=== PATIENT | female | born 1960 | race American Indian/Alaskan Native ===

== ENCOUNTER 2016-04-26 11:37 | Emergency (ER) | payer MEDICARE ==
[2016-04-26] MEDS ORDERED: MOTRIN PO ONE (16:37)
[2016-04-26 17:10] LABS: Basophils % (Auto) 1.1 % (0.0-1.8); Eosinophils % (Auto) 1.3 % (0.0-4.3); Hemoglobin 13.1 gm/dl (10.1-14.3); Mean Corpuscular HGB Conc 33 % (30-34); Mean Corpuscular Volume 79 fl (79-97); Platelet Count 157 K/mm3 (140-440); Red Blood Count 5.09 M/mm3 (3.65-5.03); Red Cell Distribution Width 16.4 % (13.2-15.2); White Blood Count 5.4 K/mm3 (4.5-11.0)
[2016-04-26 17:15] LABS: Mean Corpuscular Hemoglobin 26 pg (28-32)
[2016-04-26] MEDS ORDERED: DUONEB 0.5 MG-3 MG/3 ML SOLN IH ONE ×2 (17:17→18:15)
[2016-04-26 17:30] LABS: BUN/Creatinine Ratio 18.33; Blood Urea Nitrogen 11 mg/dL (7-17); Calcium 10.5 mg/dL (8.4-10.2); Carbon Dioxide 30 mmol/L (22-30); Chloride 100.3 mmol/L (98-107); Glucose 87 mg/dL (65-100); Sodium 141 mmol/L (137-145)
[2016-04-26 17:32] VITALS: BP 158/95
[2016-04-26 17:32] LABS: Anion Gap 15 mmol/L
--- NOTE | 2016-04-26 17:56 | XRay Report ---
FINAL REPORT EXAM: XR CHEST ROUTINE 2V HISTORY: worsening cough TECHNIQUE: PA and lateral views of the chest PRIORS: None. FINDINGS: Lines, tubes, and devices: N/A Lungs and pleura: Trachea is normal in position. Lungs are clear of infiltrate, pleural effusion, vascular congestion, or pneumothorax. Cardiomediastinal silhouette: Cardiac and mediastinal silhouettes are unremarkable. Other: Bony structures demonstrate degenerative disc changes throughout the thoracic spine with osteophytes anteriorly. IMPRESSION: No acute cardiopulmonary process seen.
--- NOTE | 2016-04-26 17:57 | Emergency Department Report ---
- General Time Seen by Provider: 04/26/16 16:31 - History of Present Illness Initial Comments: 55-year-old female past medical history diabetes hypertension asthma presents with complaint of 3 days of cough yellowish sputum, minor sore throat. Denies any chest pain no palpitations states she has been feeling somewhat wheezy ran out of her albuterol inhaler at home. Patient awake alert and oriented 3 coughing, no audible stridor or wheezing no visible dyspnea. States that she has had a yellowish sputum and her cough. States she has had multiple sick contacts at home. States she had been taking Benadryl to try to help her cough at home with minimal to no relief MD Complaint: cough Onset/Timin -: days(s) Severity: moderate Severity scale (0 -10): 5 Consistency: constant Context: sick contacts Associated Symptoms: cough - Related Data Previous Rx's Medication Instructions Recorded Last Taken Type Ibuprofen [Motrin] 800 mg PO Q8HR PRN #30 tablet 08/16/15 Unknown Rx Azithromycin [Zithromax Z-ARIA] 250 mg PO QDAY PRN #6 tablet 04/26/16 Unknown Rx Naproxen [Naproxen TAB] 250 mg PO BID PRN #20 tablet 04/26/16 Unknown Rx guaiFENesin/DEXTROMETHORPHAN 10 ml PO Q6H PRN #1 liquid 04/26/16 Unknown Rx [Diabetic Tussin Dm Max-Str Liq] Allergies Allergy/AdvReac Type Severity Reaction Status Date / Time No Known Allergies Allergy Unverified 08/16/15 03:39 ED Review of Systems ROS: Stated complaint: Other details as noted in HPI Constitutional: denies: chills, fever Eyes: denies: eye pain, eye discharge, vision change ENT: denies: ear pain, throat pain Respiratory: cough, wheezing. denies: shortness of breath Cardiovascular: denies: chest pain, palpitations Endocrine: no symptoms reported Gastrointestinal: denies: abdominal pain, nausea, diarrhea Genitourinary: denies: urgency, dysuria, discharge Musculoskeletal: denies: back pain, joint swelling, arthralgia Skin: denies: rash, lesions Neurological: denies: headache, weakness, paresthesias Psychiatric: denies: anxiety, depression Hematological/Lymphatic: denies: easy bleeding, easy bruising ED Past Medical Hx - Past Medical History Hx Hypertension: Yes Hx Diabetes: Yes - Surgical History Additional Surgical History: Hysterectomy - Social History Smoking Status: Never Smoker Substance Use Type: None - Medications Home Medications: Home Medications Medication Instructions Recorded Confirmed Last Taken Type Ibuprofen [Motrin] 800 mg PO Q8HR PRN #30 tablet 08/16/15 Unknown Rx Azithromycin [Zithromax Z-ARIA] 250 mg PO QDAY PRN #6 tablet 04/26/16 Unknown Rx Naproxen [Naproxen TAB] 250 mg PO BID PRN #20 tablet 04/26/16 Unknown Rx guaiFENesin/DEXTROMETHORPHAN 10 ml PO Q6H PRN #1 liquid 04/26/16 Unknown Rx [Diabetic Tussin Dm Max-Str Liq] ED Physical Exam - General General appearance: alert, in no apparent distress - Head Head exam: Present: atraumatic, normocephalic - Eye Eye exam: Present: normal appearance, PERRL, EOMI - ENT ENT exam: Present: mucous membranes moist - Neck Neck exam: Present: normal inspection - Respiratory Respiratory exam: Present: normal lung sounds bilaterally, wheezes (minor wheezing right lower lung field). Absent: respiratory distress - Cardiovascular Cardiovascular Exam: Present: regular rate, normal rhythm. Absent: systolic murmur, diastolic murmur, rubs, gallop - GI/Abdominal GI/Abdominal exam: Present: soft, normal bowel sounds - Extremities Exam Extremities exam: Present: normal inspection - Back Exam Back exam: Present: normal inspection - Neurological Exam Neurological exam: Present: alert, oriented X3 - Psychiatric Psychiatric exam: Present: normal affect, normal mood - Skin Skin exam: Present: warm, dry, intact, normal color. Absent: rash ED Course Vital Signs 04/26/16 04/26/16 17:31 17:47 Temperature 98.8 F Pulse Rate 81 Pulse Rate [ 85 Bilateral Upper Lobe] Respiratory 18 Rate Respiratory 18 Rate [Bilateral Upper Lobe] Blood Pressure 158/95 [Left] O2 Sat by Pulse 100 Oximetry ED Medical Decision Making - Lab Data Result diagrams: 04/26/16 16:50 04/26/16 16:50 - Medical Decision Making A/P: Acute bronchitis 1-patient is influenza negative 2-chest x-ray shows no pneumonia 3-albuterol when necessary, Motrin when necessary, Guainfenessin/DM PRN as patient is diabetic as productive cough will empirically antibios for bronchitis with Z-Aria 4-follow-up with primary medical doctor this week 5- I advised patient to return to the ED if her wheezing worsens if she develops severe fever or chills, if cough worsens or she experiences no relief with her current regimen Critical care attestation.: If time is entered above; I have spent that time in minutes in the direct care of this critically ill patient, excluding procedure time. ED Disposition Clinical Impression: Acute bronchitis Qualifiers: Bronchitis organism: unspecified organism Qualified Code(s): J20.9 - Acute bronchitis, unspecified Reactive airway disease Qualifiers: Asthma severity: mild intermittent Asthma complication type: uncomplicated Qualified Code(s): J45.20 - Mild intermittent asthma, uncomplicated Disposition: DISCHARGED TO HOME OR SELFCARE Is pt being admited?: No Condition: Stable Instructions: Acute Bronchitis (ED), Reactive Airways Disease (ED), Cold Symptoms (ED) Additional Instructions: pt to f/u with her PMD in 3-5 days, pt states she has one, if not referral provided in DC packet. Prescriptions: Azithromycin [Zithromax Z-ARIA] 250 mg PO QDAY PRN #6 tablet PRN Reason: Cough guaiFENesin/DEXTROMETHORPHAN [Diabetic Tussin Dm Max-Str Liq] 10 ml PO Q6H PRN # 1 liquid PRN Reason: Cough Naproxen [Naproxen TAB] 250 mg PO BID PRN #20 tablet PRN Reason: Cough Referrals: VU MEJIAS DO [Primary Care Provider] - 3-5 Days [facility] [Outside] - 3-5 Days KEESHA ADAN MD [Referring] - 3-5 Days Time of Disposition: 18:04
== END 2016-04-26 19:00 | disposition home or self-care (01) ==
LOC: ED 11:37
DX: J20.9 Acute bronchitis, unspecified (principal); J45.20 Mild intermittent asthma, uncomplicated; I10 Essential (primary) hypertension; E11.9 Type 2 diabetes mellitus without complications
CPT/HCPCS: 36415; 71020; 80048; 85025; 87400; 94640

== ENCOUNTER 2016-11-28 05:56 | Emergency (ER) | payer MEDICARE ==
[2016-11-28] MEDS ORDERED: TORADOL IM ONE (08:03)
[2016-11-28] MEDS ORDERED: CATAPRES PO ONE (08:06)
--- NOTE | 2016-11-28 08:10 | Emergency Department Report ---
ED ENT HPI - General Chief complaint: Earache Stated complaint: L EAR PAIN/SWELLIN/R EAR ITCHING Time Seen by Provider: 11/28/16 07:57 Source: patient Mode of arrival: Ambulatory Limitations: No Limitations - History of Present Illness Initial comments: This is a 56-year-old female nontoxic, well nourished in appearance, no acute signs of distress presents to the ED complaining of left ear pain 2 days. Patient describes pain as aching level of 10 out of 10. Patient denies any hearing loss, headache, dizziness, blurry vision, ear discharge, tragus pain, mastoid pain, fever, chills, nausea, vomiting, chest pain, shortness of breath, numbness or tingling. Patient denies any allergies. Denies any trauma to the region. They stated she has history of high blood pressure and takes lisinopril 40 mg but take her dose today. Past mental history includes diabetes and hypertension. MD complaint: ear pain -: Gradual, days(s) (2) Location: L ear Severity: moderate Severity scale (0 -10): 10 Quality: aching Consistency: constant Improves with: none Worsens with: none Associated Symptoms: denies: fever, cough, gum swelling, toothache, pain with swallowing, sore throat, tinnitus, hearing loss, discharge from ear, rhinorrhea - Related Data Previous Rx's Medication Instructions Recorded Last Taken Type Ibuprofen [Motrin] 800 mg PO Q8HR PRN #30 tablet 08/16/15 Unknown Rx Azithromycin [Zithromax Z-ARIA] 250 mg PO QDAY PRN #6 tablet 04/26/16 Unknown Rx Naproxen [Naproxen TAB] 250 mg PO BID PRN #20 tablet 04/26/16 Unknown Rx guaiFENesin/DEXTROMETHORPHAN 10 ml PO Q6H PRN #1 liquid 04/26/16 Unknown Rx [Diabetic Tussin Dm Max-Str Liq] Amoxicillin/K Clav Tab [Augmentin 1 tab PO Q12HR #20 tab 11/28/16 Unknown Rx 875 mg] traMADol [Ultram] 50 mg PO Q6HR PRN #15 tablet 11/28/16 Unknown Rx Allergies Allergy/AdvReac Type Severity Reaction Status Date / Time No Known Allergies Allergy Unverified 08/16/15 03:39 ED Dental HPI - General Chief complaint: Earache Stated complaint: L EAR PAIN/SWELLIN/R EAR ITCHING Time Seen by Provider: 11/28/16 07:57 Source: patient Mode of arrival: Ambulatory Limitations: No Limitations - Related Data Previous Rx's Medication Instructions Recorded Last Taken Type Ibuprofen [Motrin] 800 mg PO Q8HR PRN #30 tablet 08/16/15 Unknown Rx Azithromycin [Zithromax Z-ARIA] 250 mg PO QDAY PRN #6 tablet 04/26/16 Unknown Rx Naproxen [Naproxen TAB] 250 mg PO BID PRN #20 tablet 04/26/16 Unknown Rx guaiFENesin/DEXTROMETHORPHAN 10 ml PO Q6H PRN #1 liquid 04/26/16 Unknown Rx [Diabetic Tussin Dm Max-Str Liq] Amoxicillin/K Clav Tab [Augmentin 1 tab PO Q12HR #20 tab 11/28/16 Unknown Rx 875 mg] traMADol [Ultram] 50 mg PO Q6HR PRN #15 tablet 11/28/16 Unknown Rx Allergies Allergy/AdvReac Type Severity Reaction Status Date / Time No Known Allergies Allergy Unverified 08/16/15 03:39 ED Review of Systems ROS: Stated complaint: L EAR PAIN/SWELLIN/R EAR ITCHING Other details as noted in HPI Constitutional: denies: chills, fever Eyes: denies: eye pain, eye discharge, vision change ENT: ear pain. denies: throat pain Respiratory: denies: cough, shortness of breath, wheezing Cardiovascular: denies: chest pain, palpitations Endocrine: no symptoms reported Gastrointestinal: denies: abdominal pain, nausea, diarrhea Genitourinary: denies: urgency, dysuria, discharge Musculoskeletal: denies: back pain, joint swelling, arthralgia Skin: denies: rash, lesions Neurological: denies: headache, weakness, paresthesias Psychiatric: denies: anxiety, depression Hematological/Lymphatic: denies: easy bleeding, easy bruising ED Past Medical Hx - Past Medical History Previous Medical History?: Yes Hx Hypertension: Yes Hx Diabetes: Yes - Surgical History Past Surgical History?: Yes Additional Surgical History: Hysterectomy. c section - Social History Smoking Status: Never Smoker Substance Use Type: None - Medications Home Medications: Home Medications Medication Instructions Recorded Confirmed Last Taken Type Ibuprofen [Motrin] 800 mg PO Q8HR PRN #30 tablet 08/16/15 Unknown Rx Azithromycin [Zithromax Z-ARIA] 250 mg PO QDAY PRN #6 tablet 04/26/16 Unknown Rx Naproxen [Naproxen TAB] 250 mg PO BID PRN #20 tablet 04/26/16 Unknown Rx guaiFENesin/DEXTROMETHORPHAN 10 ml PO Q6H PRN #1 liquid 04/26/16 Unknown Rx [Diabetic Tussin Dm Max-Str Liq] Amoxicillin/K Clav Tab [Augmentin 1 tab PO Q12HR #20 tab 11/28/16 Unknown Rx 875 mg] traMADol [Ultram] 50 mg PO Q6HR PRN #15 tablet 11/28/16 Unknown Rx ED Physical Exam - General Limitations: No Limitations General appearance: alert, in no apparent distress - Head Head exam: Present: atraumatic, normocephalic, normal inspection - Eye Eye exam: Present: normal appearance, PERRL, EOMI. Absent: scleral icterus, conjunctival injection, nystagmus, periorbital swelling, periorbital tenderness Pupils: Present: normal accommodation - ENT ENT exam: Present: normal exam, normal orophraynx, mucous membranes moist, normal external ear exam - Expanded ENT Exam Expanded Ear exam: Present: normal external inspection TM/Canal exam: Erythema: Left TM, Bulging: Left TM Mouth exam: Present: normal external inspection, tongue normal. Absent: drooling, trismus, muffled voice, tongue elevation, laceration Teeth exam: Present: normal inspection Throat exam: Positive: normal inspection. Negative: tonsillar erythema, tonsillomegaly, tonsillar exudate, R peritonsillar mass, L peritonsillar mass - Neck Neck exam: Present: normal inspection, full ROM. Absent: tenderness, meningismus, lymphadenopathy, thyromegaly - Respiratory Respiratory exam: Present: normal lung sounds bilaterally. Absent: respiratory distress, wheezes, rales, rhonchi, stridor, chest wall tenderness, accessory muscle use, decreased breath sounds, prolonged expiratory - Cardiovascular Cardiovascular Exam: Present: regular rate, normal rhythm, normal heart sounds. Absent: bradycardia, tachycardia, irregular rhythm, systolic murmur, diastolic murmur, rubs, gallop - GI/Abdominal GI/Abdominal exam: Present: soft, normal bowel sounds. Absent: distended, tenderness, guarding, rebound, rigid, diminished bowel sounds - Rectal Rectal exam: Present: deferred - Extremities Exam Extremities exam: Present: normal inspection, full ROM, normal capillary refill. Absent: tenderness, pedal edema, joint swelling, calf tenderness - Back Exam Back exam: Present: normal inspection, full ROM. Absent: tenderness, CVA tenderness (R), CVA tenderness (L), muscle spasm, paraspinal tenderness, vertebral tenderness, rash noted - Neurological Exam Neurological exam: Present: alert, oriented X3, CN II-XII intact, normal gait, reflexes normal - Psychiatric Psychiatric exam: Present: normal affect, normal mood - Skin Skin exam: Present: warm, dry, intact, normal color. Absent: rash ED Course Vital Signs 11/28/16 06:03 Temperature 98.6 F Pulse Rate 87 Blood Pressure 202/117 - Reevaluation(s) Reevaluation #1: 11/28/16 08:11 Patient is speaking in full sentences with no signs of distress. Reevaluation #2: 11/28/16 08:11 Patient was notified of high blood pressure. Pt received Catapress 0.2mg and will reevaluate b/p. Reevaluation #3: 11/28/16 08:12 patient was notified of f/u with her PCP in 24 hours for her hypertension. Critical care attestation.: If time is entered above; I have spent that time in minutes in the direct care of this critically ill patient, excluding procedure time. ED Disposition Clinical Impression: Hypertension Qualifiers: Hypertension type: unspecified Qualified Code(s): I10 - Essential (primary) hypertension Otitis media Qualifiers: Otitis media type: unspecified Chronicity: unspecified Laterality: right Qualified Code(s): H66.91 - Otitis media, unspecified, right ear Disposition: DC-01 TO HOME OR SELFCARE Is pt being admited?: No Does the pt Need Aspirin: No Condition: Stable Instructions: Hypertension (ED), Otitis Media (ED), Amoxicillin/Clavulanate Potassium (By mouth), Tramadol (By mouth) Additional Instructions: Follow-up with your primary care doctor in 24 hours for your hypertension. Keep a diary log of your blood pressure daily. Take full course of antibiotics and was prescribed and follow-up with a primary care doctor in 3-5 days or if symptoms worsen or continue return to emergency room as soon as possible. Prescriptions: Amoxicillin/K Clav Tab [Augmentin 875 mg] 1 tab PO Q12HR #20 tab traMADol [Ultram] 50 mg PO Q6HR PRN #15 tablet PRN Reason: Pain Referrals: [facility] [Outside] - 3-5 Days [facility] [Outside] - 3-5 Days LEELEE MELENDEZ MD [Primary Care Provider] - 24 Hours PRIMARY CAREMD [Referring] - 24 Hours Forms: Work/School Release Form(ED)
[2016-11-28 09:34] VITALS: BP 124/75
== END 2016-11-28 09:49 | disposition home or self-care (01) ==
LOC: ED 05:56
DX: H66.92 Otitis media, unspecified, left ear (principal); I10 Essential (primary) hypertension; E11.9 Type 2 diabetes mellitus without complications
CPT/HCPCS: 96372; 99282; J1885